=== PATIENT | female | born 2000 | race Two or more races ===

== ENCOUNTER 2022-01-22 05:04 | Emergency (ER) | payer OTHER ==
[~2022-01-22] VITALS: Ht 165.1 cm; Wt 85.3 kg
--- NOTE | 2022-01-22 05:15 | NUR ---
[facility] C/O OTB NEED COVID TEST. NO COLD OR COVID SYMPTOMS PRESENT
--- NOTE | 2022-01-22 06:05 | NUR ---
Patient discharged to [facility] custody in stable condition. RX Written and verbal after care instructions given. Patient verbalizes understanding of instruction.
[2022-01-22 06:07] VITALS: BP 128/75
== END 2022-01-22 06:08 | disposition home or self-care (01) ==
LOC: ER 05:09
DX: Z02.89 Encounter for other administrative examinations (principal); Z20.822 Contact with and (suspected) exposure to COVID-19
CPT/HCPCS: 99283; 87426; C9803